=== PATIENT | male | born 1940 | race Caucasian/White ===

== ENCOUNTER 2022-02-14 06:05 | Inpatient (IN) | payer OTHER, BC ==
[~2022-02-14] VITALS: Ht 188 cm; Wt 99.8 kg
[2022-02-14 06:08] VITALS: BP 136/84
--- NOTE | 2022-02-14 06:16 | NUR ---
PT BIBA BLS TO BED 04
--- NOTE | 2022-02-14 06:20 | NUR ---
RECEIVED IN BED 4 . [facility]/O VOMITING COFFEEGROUND EMESIS ALL NIGHT. ALTERED PER FACILITY IS PT BASLINE. PT BEING SEEN AT FACILITY FOR CELULITUS TO BL LOWER LEGS. DENIES PAIN NKDA PMH: HTN, AFIB, HLD
[2022-02-14] MEDS ORDERED: PANTOPRAZOLE 40 MG INJ VIAL IVP ONE (06:35)
[2022-02-14] MEDS ORDERED: ONDANSETRON 4 MG/2 ML VIAL IVP ONE (06:35)
--- NOTE | 2022-02-14 06:55 | NUR ---
MOVED TO BED 9
--- NOTE | 2022-02-14 07:28 | NUR ---
Report received from Sarita. Transfer of care at this time.
[2022-02-14 08:11] LABS: HEMATOCRIT 48.5 % (36-52); HEMOGLOBIN 15.6 g/dL (12.0-18.0); MEAN CORPUSCULAR HEMOGLOBIN 28 pg (27-31); MEAN CORPUSCULAR HGB CONC 32 g/dL (33-37); MEAN CORPUSCULAR VOLUME 88.2 fL (80-94); PLATELET COUNT (AUTO) 494 K/uL (140-450); RED BLOOD CELL COUNT(AUTO) 5.49 MIL/uL (4.20-6.10); RED CELL DISTRIBUTION WIDTH 14.9 % (11.6-13.7); WHITE BLOOD COUNT (AUTO) 20.1 K/uL (4.8-10.8)
[2022-02-14 08:37] LABS: ALBUMIN 2.3 g/dL (3.4-5.0); ANION GAP 13.6 (8-16); ASPARTATE AMINOTRANSFERASE 43 U/L (15-37); CARBON DIOXIDE 29.8 mmol/L (21-32); CHLORIDE 95 mmol/L (98-107); CREATININE 1.3 mg/dL (0.6-1.3); GLUCOSE 165 mg/dL (74-106); POTASSIUM 4.4 mmol/L (3.5-5.1); SODIUM SERUM 134 mmol/L (136-145); TOTAL BILIRUBIN 0.8 mg/dL (0.0-1.0); UREA NITROGEN, BLOOD 31 mg/dL (7-18)
[2022-02-14] MEDS ORDERED: cefTRIAXone 1,000 MG VIAL ONE (09:38)
[2022-02-14] MEDS ORDERED: LORazepam 2 MG/ML VIAL ONE ×2 (09:44→12:56)
[2022-02-14] MEDS ORDERED: LORazepam 2 MG/ML VIAL IVP ONE (09:45)
--- NOTE | 2022-02-14 09:56 | NUR ---
PT YELLING, AGITATED, ARGUMENTATIVE ER GAVE V/O FOR ATIVAN 1 OR 2 MG IVP. IVP MEDS GIVEN-NADR AT THIS TIME
--- NOTE | 2022-02-14 10:01 | NUR ---
lab at bedside
[2022-02-14 10:04] LABS: APPEARANCE,URINE CLEAR (CLEAR); BILIRUBIN,URINE NEGATIVE (NEGATIVE); BLOOD, URINE 2+ (NEGATIVE); COLOR,URINE YELLOW (YELLOW); LEUKOCYTE ESTERASE ,URINE NEGATIVE (NEGATIVE); NITRITE, URINE NEGATIVE (NEGATIVE); UGLUCOSE NEGATIVE (NEGATIVE)
[2022-02-14 10:41] LABS: RBC,URINE 11-20 (MOD) /HPF (0-5); WBC,URINE 0-5 /HPF (0-5)
[2022-02-14 11:35] LABS: NEUTROPHILS % (AUTO) 89.4 % (42.2-75.2); PLATELET COUNT,MANUAL 494 K/uL (150-450)
[2022-02-14 11:36] LABS: BASOPHILS % (AUTO) 0.2 % (0.0-2.0); EOSINOPHILS # (AUTO) 0.1 K/uL (0-0.4); EOSINOPHILS % (AUTO) 0.3 % (0.0-4.0); LYMPHOCYTES % (AUTO) 4.8 % (20.5-51.1); LYMPHOCYTES % (MANUAL) 4 % (20-46); MONOCYTES # (AUTO) 1.1 K/uL (0.8-1.0); MONOCYTES % (AUTO) 5.3 % (1.7-9.3); MONOCYTES % (MANUAL) 8 % (5-12)
[2022-02-14] MEDS ORDERED: DOCU-300 PO (12:16)
[2022-02-14] MEDS ORDERED: ACET-9527 PO (12:16)
[2022-02-14] MEDS ORDERED: FLEPED RC (12:16)
[2022-02-14] MEDS ORDERED: ACET-10509 PO (12:16)
[2022-02-14] MEDS ORDERED: MAGN400S60 PO (12:16)
[2022-02-14] MEDS ORDERED: BISA-213 RC (12:16)
[2022-02-14] MEDS ORDERED: ACETAMINOPHEN 325 MG TAB PO PRN ×2 (12:40→12:45)
[2022-02-14] MEDS ORDERED: MORPHINE SULFATE 2 MG/ML SYR IVP PRN ×2 (12:40→12:45)
[2022-02-14] MEDS ORDERED: ONDANSETRON 4 MG/2 ML VIAL IVP PRN ×2 (12:40→12:45)
[2022-02-14] MEDS ORDERED: DOCUSATE SODIUM 100 MG GELCAP PO PRN (12:45)
[2022-02-14] MEDS ORDERED: POTASSIUM CHLORIDE 10 MEQ TABER PO PRN (12:45)
[2022-02-14] MEDS ORDERED: ZOLPIDEM 10 MG TAB PO PRN (12:45)
--- NOTE | 2022-02-14 12:56 | NUR ---
PT AGITATED, YELLING, REMOVING GOWN, DISCONNECTING MONITOR. RECONNECTED PT TO MONITOR AND REPOSITIONED PT IN BED FOR COMFORT.
[2022-02-14] MEDS ORDERED: LORazepam 2 MG/ML VIAL IVP PRN (13:05)
[2022-02-14] MEDS ORDERED: PIPERACILLIN/TAZOBACTAM 3.375 GM VIAL IV ONE ×2 (13:24→22:25)
[2022-02-14] MEDS: PIPERACILLIN/TAZOBACTAM 3.375 GM in DEXTROSE 5% 50 ML IV SCH ×2 (13:34→22:30)
[2022-02-14] MEDS: NACL 0.9% 1,000 ML IV SCH (13:34)
--- NOTE | 2022-02-14 18:00 | NUR ---
PT RESTING IN BED WITH EYES CLOSED, OPENS EYES WITH VERBAL AND TACTILE STIMULI. NO SIGNS OF DISTRESS OR PAIN OBSERVED. SUMAYA SIDE RAILS UP, BED IN LOW.
--- NOTE | 2022-02-14 18:34 | NUR ---
, AMIRA CALLED FOR UPDATE. REPORT GIVEN TO AND INFORMED HER OF TELEHOLD. STATES PT IS HARD OF HEARING AND WILL ATTEMPT TO BRING IN HEARING AIDS.
--- NOTE | 2022-02-14 19:22 | NUR ---
Pt report given to ERNESTO Key. Transfer of care at this time.
--- NOTE | 2022-02-14 20:24 | NUR ---
RECEIVED REPORT FROM ER. PATIENT IS A&O X1-2. PATIENT HAS CELLULITIS ON LEGS. PATIENT IS LYING SUPINE IN BED. PATIENT HAS RAC 20 RUNNING NS AT 70/HR. PATIENT IS ON ROOM AIR. KINNEY CATHETER IS ON PATIENT. BREATHING IS NORMAL WITH SYMMETRICAL RISE AND FALL OF CHEST. BED IS IN LOWEST POSITION, WHEELS ARE LOCKED, CALL LIGHT IN PLACE. WILL CONTINUE TO OBSERVE.
--- NOTE | 2022-02-14 20:45 | NUR ---
Patient will be admitted to care of DR BENAVIDEZ. Admited to TELE. Will go to room 122B. Belongings list completed. Report to ERNESTO KENDRICK.
--- NOTE | 2022-02-14 21:00 | NUR ---
PATIENT ARRIVED ON UNIT AT 2023 FROM ER. PATIENT IS A&O X1-2. PATIENT HAS IV RAC 20G RUNNING NS AT 70ML. PATIENT IS ON ROOM AIR AND BREATHING IS NORMAL WITH SYMMETRICAL RISE AND FALL OF CHEST. ADMISSION VITALS WERE:TEMP 96.9, BP 148/77, HR 106, O2 92, RR 20. BED IS IN LOWEST POSITION, WHEELS ARE LOCKED, CALL LIGHT IN PLACE. WILL REACH OUT TO FAMILY FOR ADMISSION QUESTIONS, AND WILL CONTINUE TO OBSERVE PATIENT.
--- NOTE | 2022-02-14 22:30 | NUR ---
CALLED PATIENT'S AMIRA. WAS UNABLE TO REACH HER, LEFT MESSAGE. CALLED PATIENT'S GRANDDAUGHTER. GRANDDAUGHTER WAS NOT ABLE TO PROVIDE A THOROUGH HISTORY ON PATIENT. LOOKED THROUGH CHART TO GATHER INFO ON PATIENT'S HISTORY.
--- NOTE | 2022-02-14 22:35 | NUR ---
SHIMON TOVAR. PATIENT WAS SLEEPING LYING SEMI FOWLERS POSITION. PATIENT IS ON ROOM AIR. BED IS IN LOWEST POSITION, WHEELS ARE LOCKED,CALL LIGHT IN REACH. WILL CONTINUE TO OBSERVE PATIENT.
[2022-02-15] VITALS: BP 135/91
[2022-02-15] MEDS ORDERED: MAG SULF 2000 MG/WATER PREMIX 50 ML IV PRN
--- NOTE | 2022-02-15 01:00 | NUR ---
LOOKED IN ON PATIENT. PATIENT WAS SLEEPING, IV WAS RUNNING NS AT 70ML. BREATHING WAS ASHLEY WITH SYMMETRICAL RISE AND FALL OF CHEST. WILL CONTINUE TO OBSERVE PATIENT.
[2022-02-15] MEDS: NACL 0.9% 1,000 ML IV SCH ×2 (02:00→15:45)
--- NOTE | 2022-02-15 03:45 | NUR ---
PATIENT WAS SLEEPING. BREATHING WAS NORMAL AND IV WAS RUNNING AT 70ML/HR. WILL CONTINUE TO OBSERVE.
[2022-02-15 04:00] VITALS: BP 134/97
--- NOTE | 2022-02-15 05:00 | NUR ---
RAC 20G BECAME INFILTRATED AND A NEW IV WAS PLACED BY TETE IN LE 22G. PATIENT'S IV NEW IV IS PATENT. NS RUNNING AT 70ML. BREATHING IS NORMAL WITH SYMMETRICAL RISE AND FALL OF CHEST. WILL CONTINUE TO OBSERVE.
--- NOTE | 2022-02-15 05:45 | NUR ---
PATIENT HAD BM AND REQUIRED CHANGING. PATIENT WAS CHANGED WITH ASSISTANCE OF TEX KELLY AND CHARGE NURSE TETE. AFTER CHANGING PATIENT WENT BACK TO SLEEP. BREATHING WAS NORMAL. WILL CONTINUE TO OBSERVE PATIENT.
[2022-02-15] MEDS ORDERED: PIPERACILLIN/TAZOBACTAM 3.375 GM VIAL IV ONE ×2 (05:57→20:33)
[2022-02-15] MEDS: PIPERACILLIN/TAZOBACTAM 3.375 GM in DEXTROSE 5% 50 ML IV SCH ×3 (05:59→20:45)
[2022-02-15] MEDS: PANTOPRAZOLE 40 MG TABEC PO SCH (06:07)
[2022-02-15 06:10] LABS: ANION GAP 11.8 (8-16); CARBON DIOXIDE 29.6 mmol/L (21-32); CHLORIDE 105 mmol/L (98-107); CREATININE 1.2 mg/dL (0.6-1.3); GLUCOSE 120 mg/dL (74-106); POTASSIUM 4.4 mmol/L (3.5-5.1); SODIUM SERUM 142 mmol/L (136-145); UREA NITROGEN, BLOOD 30 mg/dL (7-18)
[2022-02-15 06:25] LABS: BASOPHILS # (AUTO) 0.1 K/uL (0.00-0.22); BASOPHILS % (AUTO) 0.5 % (0.0-2.0); EOSINOPHILS # (AUTO) 0.1 K/uL (0-0.4); EOSINOPHILS % (AUTO) 0.3 % (0.0-4.0); HEMATOCRIT 45.7 % (36-52); HEMOGLOBIN 14.6 g/dL (12.0-18.0); LYMPHOCYTES # (AUTO) 1.4 K/uL (2.0-11.5); LYMPHOCYTES % (AUTO) 7.4 % (20.5-51.1); MEAN CORPUSCULAR HEMOGLOBIN 29 pg (27-31); MEAN CORPUSCULAR HGB CONC 32 g/dL (33-37); MEAN CORPUSCULAR VOLUME 89.5 fL (80-94); MONOCYTES # (AUTO) 1.4 K/uL (0.8-1.0); MONOCYTES % (AUTO) 7.5 % (1.7-9.3); NEUTROPHILS # (AUTO) 15.5 K/uL (1.8-7.7); NEUTROPHILS % (AUTO) 84.3 % (42.2-75.2); PLATELET COUNT (AUTO) 444 K/uL (140-450); RED BLOOD CELL COUNT(AUTO) 5.11 MIL/uL (4.20-6.10); RED CELL DISTRIBUTION WIDTH 15.2 % (11.6-13.7)
[2022-02-15 07:30] LABS: WHITE BLOOD COUNT (AUTO) 18.4 K/uL (4.8-10.8)
--- NOTE | 2022-02-15 07:50 | NUR ---
ENDORSED TO DAY SHIFT NURSE FOR CONTINUITY OF CARE. PATIENT IS STABLE.
[2022-02-15 08:00] VITALS: BP 137/98
--- NOTE | 2022-02-15 10:59 | NUR ---
RECEIVE ENDORSEMENT FROM PM SHIFT WHILE PATIENT REST IN BED WITH PIV AT LE 22G INFUSING NS @70ML/HR. PATIENT IS NPO D/T GI BLEED/VOMITING BLOOD. PER PM SHIFT DOCUMENTATION, PATIENT HAD 1 BM LAST NIGHT. WILL CONTINUE TO MONITOR
[2022-02-15 12:00] VITALS: BP 185/96
[2022-02-15 16:00] VITALS: BP 126/58
--- NOTE | 2022-02-15 19:30 | NUR ---
RECEIVED REPORT FROM DAY SHIFT NURSE YUMIKO FOR CONTINUITY OF CARE. PATIENT IS A&OX 1-2. PATIENT IS IN HIGH FOWLERS POSITION EATING INDEPENDENTLY. PATIENT IS ON ROOM AIR. IV IS LE 22G RUNNING NS AT 70ML. PATIENT HAS CELLULITIS ON BOTH LEGS AND SACRAL WOUND. BREATHING IS NORMAL WITH SYMMETRICAL RISE AND FALL OF CHEST. BED IS IN LOWEST POSITION, WHEELS LOCKED, CALL LIGHT IN PLACE. WILL CONTINUE TO OBSERVE PATIENT.
--- NOTE | 2022-02-15 19:44 | NUR ---
ENDORSE PATIENT TO PM SHIFT WHILE PATIENT REST IN BED WITH PIV AT LE 22G INFUSING NS @70ML/HR. PATIENT IS ON REGULAR DIET AFTER GI CONSULT VISIT, SHARA
[2022-02-15 20:00] VITALS: BP 166/96
--- NOTE | 2022-02-15 21:00 | NUR ---
PATIENT WAS GIVEN 2100 MEDICATION IVPB. PATIENT IS CONFUSED, NOT SURE OF WHERE HE IS AND SAYING THINGS THAT DON'T MAKE SENSE. REMINDED PATIENT THAT HE WAS IN THE HOSPITAL, HOWEVER HE MAY NOT HAVE UNDERSTOOD RESPONDING WITH MORE WORDS THAT DIDN'T MAKE SENSE "CAN YOU GO GET ME SOME MACHO MAMIE". ASKED PATIENT WHAT IT WAS HE JUST STATED, "IT'S MACHO MAMIE". I TOLD HIM I DON'T THINK WE HAVE THAT. HE SAID, "OKAY"; AND STARRED AT TELEVISION. BED IS IN LOWEST POSITION, WHEELS LOCKED, CALL LIGHT IN REACH. WILL CONTINUE TO OBSERVE.
--- NOTE | 2022-02-15 21:30 | NUR ---
PATIENT CALLED OUT FOR NURSE. PATIENT STATED HE WAS IN PAIN. COULDN'T SAY WHERE PAIN WAS LOCATED. CHECKED PATIENT'S CHART AND BLOOD PRESSURE; IT WAS APPROPRIATE TO GIVE PAIN MEDICATION. ADMINISTERED PAIN MEDICATION TO PATIENT. PATIENT TOLERATED WELL. WILL REASSESS PAIN IN ONE HOUR. BED WAS IN LOWEST POSITION, WHEELS LOCKED, CALL LIGHT IN REACH.
--- NOTE | 2022-02-15 22:25 | NUR ---
LOOKED IN ON PATIENT. PATIENT WAS SLEEPING. MEDICATION WAS AFFECTIVE IN PROVIDING COMFORT TO PATIENT. BREATHING WAS NORMAL WITH SYMMETRICAL RISE AND FALL OF CHEST. WILL CONTINUE TO OBSERVE PATIENT.
[2022-02-16] VITALS: BP 140/77
[2022-02-16] MEDS: NACL 0.9% 1,000 ML IV SCH (02:11)
--- NOTE | 2022-02-16 02:11 | NUR ---
HUNG NEW IV BAG OF NS RUNNING AT 75ML/HR. PATIENT WAS SLEEPING IN HIGH FOWLERS POSITION. BREATHING WAS NORMAL WITH SYMMETRICAL RISE AND FALL OF CHEST. WILL CONTINUE TO OBSERVE PATIENT.
[2022-02-16 04:00] VITALS: BP 141/70
--- NOTE | 2022-02-16 04:10 | NUR ---
PATIENT WOKE UP AND BEGAN SHOUTING FOR WATER. WENT INTO ROOM PATIENT WAS LYING DOWN IN HIGH FOWLERS POSITION. PATIENT IS ON REGULAR DIET SO I GAVE PATIENT WATER (WHICH HE DRANK I HELD THE STRAW TO HIS MOUTH). PATIENT INFORMED ME WHEN HE WAS FINISHED AND SAID THANK YOU. THEN CONTINUED MUMBLING CONFUSING STATEMENTS. I TOLD THE PATIENT TO TRY AND GO BACK TO SLEEP. PATIENT CONTINUED SPEAKING WORDS THAT MADE NO SENSE. WILL CONTINUE TO OBSERVE PATIENT.
[2022-02-16] MEDS: PIPERACILLIN/TAZOBACTAM 3.375 GM in DEXTROSE 5% 50 ML IV SCH ×2 (05:40→13:01)
--- NOTE | 2022-02-16 05:50 | NUR ---
GAVE ZOSYN IVPB. PATIENT WAS AWAKE AND MUMBLING. PATIENT THEN ASKED IF I WAS THERE TO CHECK BLOOD PRESSURE, I TOLD HIM THAT I WAS THERE TO GIVE ANTIBIOTIC IVPB. PATIENT DIDN'T SEEM TO UNDERSTAND, I EXPLAINED AGAIN, AND PATIENT SAID OKAY. MEDICATION WAS ADMINISTERED. PATIENT'S BREATHING WAS NORMAL WITH SYMMETRICAL RISE AND FALL OF CHEST. WILL CONTINUE TO OBSERVE.
[2022-02-16] MEDS: PANTOPRAZOLE 40 MG TABEC PO SCH (07:13)
--- NOTE | 2022-02-16 07:17 | NUR ---
GAVE 0630 MEDICATION PO. PATIENT TOLERATED WELL. WILL CONTINUE TO OBSERVE.
--- NOTE | 2022-02-16 07:36 | NUR ---
ENDORSED TO DAY SHIFT FOR CONTINUITY OF CARE. PATIENT IS STABLE.
[2022-02-16 08:00] VITALS: BP 154/85
--- NOTE | 2022-02-16 08:50 | NUR ---
PATIENT HAS BEEN SCREENED AND CATEGORIZED HIGH NUTRITION RISK. PATIENT WILL BE SEEN WITHIN 1-2 DAYS OF ADMISSION. 02/16/22 CONSULT RECEIVED FOR WOUNDS AND PRESSURE INJURY MERVAT VERAS RD
[2022-02-16] MEDS ORDERED: IV Zosyn IV (10:48)
--- NOTE | 2022-02-16 11:21 | NUR ---
WOUND CARE EVALUATION NOTE: PT. ADMITTED WITH BLE CELLULITIS AND SKIN ALTERATION TO SACRALCOCCYX . BLE DRY SCALY SKIN SKIN INTACT WITH HYPERPIGMENTATION ,SLIGHTLY ERYTHEMA, NOT SWELLING, WITH NORMAL BODY TEMP.MOISTURE ASSOCIATED DERMATITIS WITH MULTIPLE SUPERFICIAL EROSIONS TO SACRAL AND RIGHT LOWER BUTTOCK, SKIN RED AND MOIST, NO ODOR, GIN-WOUND SKIN NON-BLANCHABLE. PT. WITH LOW BRIAN SCALE AT MODERATE TO HIGH RISK, CONTINUE TO FOLLOW PRESSURE INJURY PREVENTION INTERVENTIONS. RECOMMENDATIONS: -SACRALCOCCYX AND GIN CARE Q2 HOURS, KEEP AREA DRY AND CLEAN -APPLY Z GUARD TO SACRALCOCCYX AND LOWER BUTTOCKS BID AND PRN IF SOILING -POSITIONING: TURN AND REPOSITION PATIENT Q 2H OR SOONER USE PILLOWS TO KEEP BONY PROMINENCES FROM DIRECT CONTACT WITH SURFACES USE REPOSITIONING WEDGES TO PROVIDE 30-DEGREE ANGLE FOR SIDE LYING POSITIONS OFFLOADING OR FOAM DRESSING TO ALL TUBING TO PREVENT MEDICAL DEVICES RELATED PRESSURE INJURY -RE-EVALUATING AND MANAGING INCONTINENCE MONITOR SKIN CONDITION DURING POSITION CHANGE DO NOT MASSAGE REDNESS, BONY PROMINENCES FREQUENT GIN-CARE AND PROVIDE BARRIER CREAMS PRN IF SOILING MOISTURE CONTROL BY OFFER BED NGUYEN/URINAL /ABSORBENT PAD TO WICK AND HOLD MOISTURE KEEP SKIN DRY AND PROTECT FROM FRICTION -MANAGE FRICTION/SHEAR/MOBILITY KEEP HOB AT THE LOWEST LEVEL OF ELEVATION NO MORE THAN 30 DEGREE UNLESS OTHERWISE CONTRAINDICATED USE LIFT SHEET OR TRANSFER DEVICE TO MOVE PATIENT AND PREVENT LATERAL SHEER. PROTECT HEELS, ELBOWS BONY PROMINENCES WITH SKIN BERRIES OR FOAM DRESSING IF EXPOSED TO FRICTION OFFLOAD BILATERAL HEELS BY PLACING PILLOWS UNDER CALVES AT ALL TIMES, UNLESS OTHERWISE CONTRAINDICATED -PRESSURE REDISTRIBUTION SURFACE THERAPY REMINGTON ISOFLEX MATTRESS -NUTRITION: PLEASE FOLLOW RD RECOMMENDATIONS AND OFFER NUTRITION SUPPLEMENTS IF ORDERED.
--- NOTE | 2022-02-16 11:45 | NUR ---
DC PLANNING: THE PATIENT ADMITTED FROM [facility] [place] WITH C/O HEMATEMESIS. H&H STABLE, UA+, UC ORDERED, STARTED ON ZOSYN IV. H/O HTN, DEMENTIA, BPH AND A FIB. WB'CS 20.1 ON ADMISSION, ORDERS FOR GI CONSULT WHICH DID NOT RECOMMEND INVASIVE EVALUATION. CM SPOKE WITH THE PATIENTS AMIRA AND GRANDDAUGHTER GUILLE TO INFORM THEM THAT THE PATIENT IS BEING DISCHARGED BACK TO [facility] [place] TODAY, BOTH ARE IN AGREEMENT. ACCEPTED TO ROOM 39A, DR QUINTERO TO CONTINUE FOLLOWING. [facility] [place] IS SETTING UP TRANSPORT AND WILL LET CM KNOW TIME AND COMPANY. CM WILL FOLLOW. Addendum: 02/16/22 at 1302 by Ana Paulino CM DC PLANNING: THE PATIENT WILL BE PICKED UP BY [facility] BETWEEN 2-3 PM TODAY. CM WILL FOLLOW.
[2022-02-16 11:46] LABS: HEMATOCRIT 46.6 % (36-52); HEMOGLOBIN 14.9 g/dL (12.0-18.0); MEAN CORPUSCULAR HEMOGLOBIN 29 pg (27-31); MEAN CORPUSCULAR HGB CONC 32 g/dL (33-37); MEAN CORPUSCULAR VOLUME 89.2 fL (80-94); PLATELET COUNT (AUTO) 443 K/uL (140-450); RED BLOOD CELL COUNT(AUTO) 5.22 MIL/uL (4.20-6.10); RED CELL DISTRIBUTION WIDTH 14.8 % (11.6-13.7); WHITE BLOOD COUNT (AUTO) 18.2 K/uL (4.8-10.8)
[2022-02-16 11:54] LABS: ANION GAP 16.2 (8-16); CARBON DIOXIDE 26.3 mmol/L (21-32); CHLORIDE 104 mmol/L (98-107); CREATININE 1.8 mg/dL (0.6-1.3); GLUCOSE 160 mg/dL (74-106); POTASSIUM 4.5 mmol/L (3.5-5.1); SODIUM SERUM 142 mmol/L (136-145); UREA NITROGEN, BLOOD 33 mg/dL (7-18)
[2022-02-16 12:00] VITALS: BP 159/100
[2022-02-16 12:08] LABS: LYMPHOCYTES % (MANUAL) 5 % (20-46); MONOCYTES % (MANUAL) 5 % (5-12)
[2022-02-16] MEDS ORDERED: Z-GUARD PASTE TP SCH (13:00)
[2022-02-16 13:20] VITALS: BP 159/100
--- NOTE | 2022-02-16 14:32 | NUR ---
[facility] IS HERE, PATIENT IS READY TO BE DISCHARGE BACK TO [facility]. DISCHARGE INSTRUCTION GIVEN TO PATIENT, REPORT GIVEN TO NURSE, ERNESTO MALIK [employer] SEAL OPERATOR [place] [facility] [place][phone][place] PATIENT'S NEXT KIN, GUILLE UMANA ([phone]) INFORMED REGARDING TO PATIENT IS D/[place] BACK [place] [facility] [place]. TEL. MONITOR & WRIST BAND REMOVED, IV ACCESS KEPT [place] [facility] [place]. PATIENT DISCHARGE W/ STABLE CONDITION.
[2022-03-03] MEDS ORDERED: SENN-73 PO (14:45)
[2022-03-03] MEDS ORDERED: METO25TE2 PO (14:45)
[2022-03-03] MEDS ORDERED: DOCU-299 PO (14:45)
[2022-03-03] MEDS ORDERED: ACET-8386 PO (14:45)
[2022-03-03] MEDS ORDERED: BISA5TAB79 PO (14:45)
[2022-03-03] MEDS ORDERED: APIX2.5 PO (14:45)
[2022-03-03] MEDS ORDERED: MAGN400S60 PO (14:45)
[2022-03-03] MEDS ORDERED: TAMS0.4C96 PO (14:45)
[2022-03-09] MEDS ORDERED: MERO1PDS7 IV (12:07)
[2022-03-09] MEDS ORDERED: METO25TA PO (12:07)
== END 2022-02-16 15:05 | DRG 871 ==
LOC: MED 06:05 → MTU 12:41
PROVIDERS: ADMIT Family Medicine; ATTEND Family Medicine
DX: A41.9 Sepsis, unspecified organism (principal); E43 Unspecified severe protein-calorie malnutrition; L03.116 Cellulitis of left lower limb; E87.1 Hypo-osmolality and hyponatremia; L03.115 Cellulitis of right lower limb; E78.5 Hyperlipidemia, unspecified; I48.91 Unspecified atrial fibrillation; N40.0 Benign prostatic hyperplasia without lower urinary tract symptoms; R74.01 Elevation of levels of liver transaminase levels; E87.8 Other disorders of electrolyte and fluid balance, not elsewhere classified; F03.90 Unspecified dementia, unspecified severity, without behavioral disturbance, psychotic disturbance, mood disturbance, and anxiety; Z20.822 Contact with and (suspected) exposure to COVID-19; I12.9 Hypertensive chronic kidney disease with stage 1 through stage 4 chronic kidney disease, or unspecified chronic kidney disease; E11.22 Type 2 diabetes mellitus with diabetic chronic kidney disease; N18.9 Chronic kidney disease, unspecified; Z79.1 Long term (current) use of non-steroidal anti-inflammatories (NSAID); Z79.899 Other long term (current) drug therapy; Z68.28 Body mass index [BMI] 28.0-28.9, adult
CPT/HCPCS: 36415; 71045; 80048; 80053; 81001; 83735; 84484; 85025; 87040; 87081; 93005; 96365; 96375; 96376; 99285; C9113; J0696; J2060; J2270; J2405; J2543; J7060; Q0092; Q9967

== ENCOUNTER 2022-02-18 10:15 | Inpatient (IN) | payer OTHER, BC ==
[~2022-02-18] VITALS: Ht 172.7 cm; Wt 96.6 kg
[~2022-02-18 10:15] MED LIST: IV Zosyn IV
[2022-02-18 10:26] VITALS: BP 148/74
[2022-02-18] MEDS ORDERED: NACL 0.9% 500 ML IV ONE ×2 (11:20→12:20)
[2022-02-18 11:51] LABS: BASOPHILS % (AUTO) 0.4 % (0.0-2.0); EOSINOPHILS # (AUTO) 0.2 K/uL (0-0.4); EOSINOPHILS % (AUTO) 1.8 % (0.0-4.0); HEMATOCRIT 40.7 % (36-52); HEMOGLOBIN 12.9 g/dL (12.0-18.0); LYMPHOCYTES # (AUTO) 1.1 K/uL (2.0-11.5); LYMPHOCYTES % (AUTO) 9.3 % (20.5-51.1); MEAN CORPUSCULAR HEMOGLOBIN 28 pg (27-31); MEAN CORPUSCULAR HGB CONC 32 g/dL (33-37); MEAN CORPUSCULAR VOLUME 89.4 fL (80-94); MONOCYTES # (AUTO) 0.7 K/uL (0.8-1.0); MONOCYTES % (AUTO) 6.2 % (1.7-9.3); NEUTROPHILS # (AUTO) 9.8 K/uL (1.8-7.7); NEUTROPHILS % (AUTO) 82.3 % (42.2-75.2); PLATELET COUNT (AUTO) 358 K/uL (140-450); RED BLOOD CELL COUNT(AUTO) 4.55 MIL/uL (4.20-6.10); RED CELL DISTRIBUTION WIDTH 15.1 % (11.6-13.7); WHITE BLOOD COUNT (AUTO) 11.9 K/uL (4.8-10.8)
[2022-02-18 12:04] LABS: ALBUMIN 1.8 g/dL (3.4-5.0); ASPARTATE AMINOTRANSFERASE 44 U/L (15-37); CARBON DIOXIDE 27.1 mmol/L (21-32); CHLORIDE 108 mmol/L (98-107); GLUCOSE 101 mg/dL (74-106); POTASSIUM 4.1 mmol/L (3.5-5.1); SODIUM SERUM 145 mmol/L (136-145); TOTAL BILIRUBIN 1.2 mg/dL (0.0-1.0); UREA NITROGEN, BLOOD 54 mg/dL (7-18)
[2022-02-18 12:07] LABS: APPEARANCE,URINE CLEAR (CLEAR); BILIRUBIN,URINE NEGATIVE (NEGATIVE); BLOOD, URINE 3+ (NEGATIVE); COLOR,URINE YELLOW (YELLOW); LEUKOCYTE ESTERASE ,URINE TRACE (NEGATIVE); NITRITE, URINE NEGATIVE (NEGATIVE); PH,URINE 5.5 (5.0-9.0); UGLUCOSE NEGATIVE (NEGATIVE)
[2022-02-18] MEDS: NACL 0.9% 1,000 ML IV SCH ×2 (12:30→20:52)
[2022-02-18] MEDS ORDERED: MORPHINE SULFATE 2 MG/ML SYR IVP PRN ×2 (12:30→14:10)
[2022-02-18] MEDS ORDERED: ONDANSETRON 4 MG/2 ML VIAL IVP PRN ×2 (12:30→14:10)
[2022-02-18] MEDS ORDERED: ACETAMINOPHEN 325 MG TAB PO PRN (12:30)
[2022-02-18 13:00] LABS: RBC,URINE 20-50 /HPF (0-5)
[2022-02-18] MEDS ORDERED: DOCUSATE SODIUM 100 MG GELCAP PO PRN (14:10)
[2022-02-18] MEDS ORDERED: POTASSIUM CHLORIDE 10 MEQ TABER PO PRN (14:10)
[2022-02-18] MEDS ORDERED: ZOLPIDEM 10 MG TAB PO PRN (14:10)
[2022-02-18] MEDS ORDERED: ONDA-188 IVP (14:59)
[2022-02-18] MEDS ORDERED: PIPE1SOL IV (15:01)
[2022-02-18] MEDS ORDERED: WATER STERILE 10 ML MC ONE (17:00)
[2022-02-18] MEDS ORDERED: cefTRIAXone 1,000 MG VIAL ONE (17:01)
[2022-02-18 19:30] VITALS: BP 106/70
[2022-02-19] VITALS: BP 109/66
[2022-02-19] MEDS ORDERED: MAG SULF 2000 MG/WATER PREMIX 50 ML IV PRN
[2022-02-19] MEDS: ACETAMINOPHEN 325 MG TAB PO PRN (03:15)
[2022-02-19 04:00] VITALS: BP 111/62
[2022-02-19] MEDS: NACL 0.9% 1,000 ML IV SCH ×2 (04:52→13:22)
[2022-02-19 08:00] VITALS: BP 149/77
[2022-02-19 09:42] LABS: BASOPHILS # (AUTO) 0.1 K/uL (0.00-0.22); BASOPHILS % (AUTO) 0.7 % (0.0-2.0); EOSINOPHILS # (AUTO) 0.4 K/uL (0-0.4); EOSINOPHILS % (AUTO) 4.7 % (0.0-4.0); HEMATOCRIT 39.3 % (36-52); HEMOGLOBIN 12.6 g/dL (12.0-18.0); LYMPHOCYTES # (AUTO) 1.5 K/uL (2.0-11.5); LYMPHOCYTES % (AUTO) 16.7 % (20.5-51.1); MEAN CORPUSCULAR HEMOGLOBIN 29 pg (27-31); MEAN CORPUSCULAR HGB CONC 32 g/dL (33-37); MEAN CORPUSCULAR VOLUME 89.3 fL (80-94); MONOCYTES # (AUTO) 0.6 K/uL (0.8-1.0); MONOCYTES % (AUTO) 6.7 % (1.7-9.3); NEUTROPHILS # (AUTO) 6.4 K/uL (1.8-7.7); NEUTROPHILS % (AUTO) 71.2 % (42.2-75.2); PLATELET COUNT (AUTO) 313 K/uL (140-450); RED BLOOD CELL COUNT(AUTO) 4.41 MIL/uL (4.20-6.10); RED CELL DISTRIBUTION WIDTH 14.8 % (11.6-13.7)
[2022-02-19 10:42] LABS: ANION GAP 10.4 (8-16); CARBON DIOXIDE 29.4 mmol/L (21-32); CHLORIDE 105 mmol/L (98-107); GLUCOSE 80 mg/dL (74-106); POTASSIUM 3.8 mmol/L (3.5-5.1); SODIUM SERUM 141 mmol/L (136-145); UREA NITROGEN, BLOOD 44 mg/dL (7-18)
[2022-02-19 12:00] VITALS: BP 137/97
[2022-02-19] MEDS ORDERED: POLYVINYL ALCOHOL 1.4% OP 15 ML SOL OP SCH (13:00)
[2022-02-19] MEDS: POLYVINYL ALCOHOL 1.4% OP 15 ML SOL OP SCH ×2 (13:00→17:33)
[2022-02-19 16:00] VITALS: BP 149/74
[2022-02-19 20:00] VITALS: BP 136/82
[2022-02-20] VITALS: BP 133/92
[2022-02-20 04:00] VITALS: BP 128/93
[2022-02-20 08:00] VITALS: BP 176/89
[2022-02-20] MEDS: POLYVINYL ALCOHOL 1.4% OP 15 ML SOL OP SCH ×3 (09:23→17:28)
[2022-02-20 12:00] VITALS: BP 144/73
[2022-02-20] MEDS: Z-GUARD PASTE TP SCH (13:29)
[2022-02-20] MEDS: THERAHONEY GEL 42.5 GM TP SCH (13:29)
[2022-02-20 16:00] VITALS: BP 178/79
[2022-02-20] MEDS: hydrALAZINE 20 MG/ML VIAL IVP PRN (17:44)
[2022-02-20 20:00] VITALS: BP 150/79
[2022-02-21] VITALS: BP 145/80
[2022-02-21] MEDS: Z-GUARD PASTE TP SCH ×2 (01:19→14:01)
[2022-02-21] MEDS: ACETAMINOPHEN 325 MG TAB PO PRN ×2 (01:20→12:14)
[2022-02-21 04:00] VITALS: BP 140/78
[2022-02-21 06:50] LABS: BASOPHILS % (AUTO) 0.4 % (0.0-2.0); EOSINOPHILS # (AUTO) 0.3 K/uL (0-0.4); EOSINOPHILS % (AUTO) 3.4 % (0.0-4.0); HEMATOCRIT 41.1 % (36-52); HEMOGLOBIN 13.3 g/dL (12.0-18.0); LYMPHOCYTES # (AUTO) 1.5 K/uL (2.0-11.5); MEAN CORPUSCULAR HEMOGLOBIN 29 pg (27-31); MEAN CORPUSCULAR HGB CONC 32 g/dL (33-37); MEAN CORPUSCULAR VOLUME 88.6 fL (80-94); MONOCYTES # (AUTO) 0.6 K/uL (0.8-1.0); MONOCYTES % (AUTO) 7.3 % (1.7-9.3); NEUTROPHILS # (AUTO) 6.1 K/uL (1.8-7.7); NEUTROPHILS % (AUTO) 71.9 % (42.2-75.2); PLATELET COUNT (AUTO) 286 K/uL (140-450); RED BLOOD CELL COUNT(AUTO) 4.64 MIL/uL (4.20-6.10); RED CELL DISTRIBUTION WIDTH 14.4 % (11.6-13.7); WHITE BLOOD COUNT (AUTO) 8.5 K/uL (4.8-10.8)
[2022-02-21 07:23] LABS: ANION GAP 11.9 (8-16); CARBON DIOXIDE 24.9 mmol/L (21-32); CHLORIDE 107 mmol/L (98-107); CREATININE 1.1 mg/dL (0.6-1.3); GLUCOSE 96 mg/dL (74-106); POTASSIUM 3.8 mmol/L (3.5-5.1); SODIUM SERUM 140 mmol/L (136-145); UREA NITROGEN, BLOOD 26 mg/dL (7-18)
[2022-02-21 08:00] VITALS: BP 191/131
[2022-02-21] MEDS: hydrALAZINE 20 MG/ML VIAL IVP PRN (09:31)
[2022-02-21] MEDS: POLYVINYL ALCOHOL 1.4% OP 15 ML SOL OP SCH ×3 (09:39→17:45)
[2022-02-21] MEDS ORDERED: PEPTO BISMOL (11:15)
[2022-02-21] MEDS ORDERED: PANT40EC PO (11:15)
[2022-02-21 12:00] VITALS: BP 157/77
[2022-02-21] MEDS: THERAHONEY GEL 42.5 GM TP SCH (14:00)
[2022-02-21 15:04] VITALS: BP 157/77
[2022-02-21 16:00] VITALS: BP 145/73
[2022-03-03] MEDS ORDERED: ACET-8386 PO (14:45)
[2022-03-03] MEDS ORDERED: BISA5TAB79 PO (14:45)
[2022-03-03] MEDS ORDERED: MAGN400S60 PO (14:45)
[2022-03-03] MEDS ORDERED: SENN-73 PO (14:45)
[2022-03-03] MEDS ORDERED: METO25TE2 PO (14:45)
[2022-03-03] MEDS ORDERED: APIX2.5 PO (14:45)
[2022-03-03] MEDS ORDERED: DOCU-299 PO (14:45)
[2022-03-03] MEDS ORDERED: TAMS0.4C96 PO (14:45)
[2022-03-09] MEDS ORDERED: MERO1PDS7 IV (12:07)
[2022-03-09] MEDS ORDERED: METO25TA PO (12:07)
== END 2022-02-21 18:10 | DRG 871 ==
LOC: MED 10:15 → MTU 12:28
PROVIDERS: ADMIT Family Medicine; ATTEND Family Medicine
DX: A41.9 Sepsis, unspecified organism (principal); E43 Unspecified severe protein-calorie malnutrition; N17.0 Acute kidney failure with tubular necrosis; N39.0 Urinary tract infection, site not specified; N14.1 Nephropathy induced by other drugs, medicaments and biological substances; E86.0 Dehydration; I10 Essential (primary) hypertension; E78.5 Hyperlipidemia, unspecified; N40.0 Benign prostatic hyperplasia without lower urinary tract symptoms; E87.8 Other disorders of electrolyte and fluid balance, not elsewhere classified; T50.8X5A Adverse effect of diagnostic agents, initial encounter; R74.01 Elevation of levels of liver transaminase levels; Z20.822 Contact with and (suspected) exposure to COVID-19; Z79.1 Long term (current) use of non-steroidal anti-inflammatories (NSAID); Z79.899 Other long term (current) drug therapy; Z68.32 Body mass index [BMI] 32.0-32.9, adult; Y92.89 Other specified places as the place of occurrence of the external cause
CPT/HCPCS: 36415; 71045; 76700; 80048; 80053; 81001; 83735; 85025; 87081; 87086; 96360; 99291; J0360; J0696; J3475; J7030; J7060; Q0092